=== PATIENT | female | born 1970 | race Caucasian/White ===

== ENCOUNTER → 2016-07-20 | Outpatient (CLI) | payer BC ==
--- NOTE | 2016-07-20 19:25 | Diagnostic Imaging Report ---
Bilateral screening mammogram The current study was also evaluated with a Computer Aided Detection (CAD) system. Indication: Screening. No current complaints stated on the questionnaire. COMPARISON: 07/22/15. FINDINGS: The breasts are composed of heterogeneously dense parenchyma which may decrease mammographic sensitivity. There is no mass, architectural distortion or suspicious cluster of calcifications seen. Allowing for technique and positional differences, no suspicious change is seen. IMPRESSION: Dense breasts with no definite change. ACR BI-RADS Category 2: Benign findings. Result letter will be mailed to the patient. Note: At least 10% of breast cancer is not imaged by mammography. Dictated by: Dictated on workstation # [id number]
== END ==
LOC: RAD 14:46
PROVIDERS: ATTEND Obstetrics & Gynecology
DX: Z12.31 Encounter for screening mammogram for malignant neoplasm of breast (principal)

== ENCOUNTER → 2017-08-10 | Outpatient (CLI) | payer BC ==
--- NOTE | 2017-08-10 19:22 | Diagnostic Imaging Report ---
INDICATION: Routine screening. The current study was also evaluated with a Computer Aided Detection (CAD) system. Comparison is made with prior exam from 07/20/2016 and 07/22/2015. Both breasts demonstrate marked parenchymal heterogeneity and increased density, limiting the sensitivity of mammography. There is a nodular density just lateral to the nipple line in the mid right breast which appears stable when compared with prior mammograms. On the MLO view, there is a small nodular density posteriorly at the nipple line, posterior to the fibroglandular tissue, indeterminate. Additional views are recommended. The left breast is unremarkable. The axillae are unremarkable. IMPRESSION: Right breast density on the MLO view. Spot compression and ML views are recommended for further evaluation. ACR BI-RADS Category 0: Incomplete. (Needs additional imaging evaluation). Result letter will be mailed to the patient. Note: At least 10% of breast cancer is not imaged by mammography. Dictated by: Dictated on workstation # [id number]
== END ==
LOC: RAD 09:40
PROVIDERS: ATTEND Obstetrics & Gynecology
DX: Z12.31 Encounter for screening mammogram for malignant neoplasm of breast (principal)
CPT/HCPCS: 77067

== ENCOUNTER → 2017-08-20 | Outpatient (CLI) | payer BC ==
--- NOTE | 2017-08-20 20:32 | Diagnostic Imaging Report ---
EXAMINATION: Ultrasound of the right breast. INDICATION: Abnormal mammogram. FINDINGS: The screening mammogram performed on 08/10/2017 noted a small 3-4 mm nodular density roughly 8-9 cm from the nipple and posterior to the fibroglandular tissue. This density was only seen on the MLO view and could not be identified on the craniocaudal view. The diagnostic mammogram performed earlier today revealed that the nodular density seemed to persist on the repeat MLO views although it could not be identified on the compression or true lateral view. The ultrasound examination of this portion of the breast fails to show any discrete solid or cystic mass. While the precise etiology of the mammographic finding is not certain, it has a generally benign appearance. I would recommend that a short-term (six-month) follow-up mammogram of the right breast be obtained for continued evaluation. IMPRESSION: There is no discrete solid or cystic mass to correspond to the density seen on the mammogram. Most likely, the mammographic finding is a benign process or secondary to fibroglandular tissue.. Recommendations as above. ACR BI-RADS Category 3: Probably benign findings. Dictated on workstation # [id number]
--- NOTE | 2017-08-21 12:19 | Diagnostic Imaging Report ---
EXAMINATION: Unilateral diagnostic right mammogram INDICATION: Annual screening mammogram The current study was also evaluated with a Computer Aided Detection (CAD) system. The screening mammogram performed on 08/10/2017 noted a small 4-5 MM nodular density deep in the midportion of the right breast on the MLO view. This density was not identified with certainty on the craniocaudad view. This finding is not as conspicuous on the compression view or on the MLO view although it still seems to persist on the repeat MLO view. I do suspect that this is a benign process or secondary to fibroglandular tissue. Even so, I would recommend that ultrasound be performed for further study. IMPRESSION: Ultrasound would be recommended for further evaluation of the right breast. ACR BI-RADS Category 0: Incomplete. (Needs additional imaging evaluation). Result letter will be mailed to the patient. Note: At least 10% of breast cancer is not imaged by mammography. Dictated on workstation # [id number]
== END ==
LOC: RAD 13:59
PROVIDERS: ATTEND Obstetrics & Gynecology
DX: R92.2 Inconclusive mammogram (principal)
CPT/HCPCS: 76641

== ENCOUNTER → 2018-03-29 | Outpatient (CLI) | payer BC ==
--- NOTE | 2018-03-29 13:49 | Diagnostic Imaging Report ---
INDICATION: Right breast density. Patient presents for six-month followup. Correlation is made with prior mammograms from 08/10/2017 and 08/20/2017. 2-D and 3-D unilateral right diagnostic mammography was performed. Right breast remains heterogenously dense, the tiny nodular density in the far posterior right breast seen on MLO view posterior to the fibroglandular tissue is again seen and unchanged. This again has a fairly benign appearance. No new mass is seen. No suspicious calcifications are identified. The right axilla is unremarkable. IMPRESSION: BI-RADS 3 Stable right mammogram with stable nodular density in the far posterior right breast. Continued follow with repeat mammogram in 6 months is recommended to assure stability. ACR BI-RADS Category 3: Probably benign findings. Result letter will be mailed to the patient. Note: At least 10% of breast cancer is not imaged by mammography. Dictated by: Dictated on workstation # [id number]
== END ==
LOC: RAD 13:13
PROVIDERS: ATTEND Obstetrics & Gynecology
DX: Z09 Encounter for follow-up examination after completed treatment for conditions other than malignant neoplasm (principal); R92.2 Inconclusive mammogram

== ENCOUNTER → 2018-08-09 | Outpatient (CLI) | payer BC ==
--- NOTE | 2018-08-09 17:18 | Diagnostic Imaging Report ---
INDICATION: Six-month followup of right breast density. COMPARISON: Correlation is made with diagnostic mammogram of earlier the same day as well as prior right breast ultrasound from 08/20/2017. EXAMINATION: Sonographic interrogation of the right breast was performed. FINDINGS: No sonographic abnormality is seen. No solid or cystic mass is detected. Circumscribed ovoid density noted mammographically cannot be visualized sonographically. IMPRESSION: No sonographic abnormality is seen. Benign ovoid density seen mammographically is not visible sonographically. This does have benign features and continued right mammographic followup in six months is recommended to assure continued stability. ACR BI-RADS Category 3: Probably benign findings. Result letter will be mailed to the patient. Note: At least 10% of breast cancer is not imaged by mammography. Dictated on workstation # [id number]
--- NOTE | 2018-08-09 18:47 | Diagnostic Imaging Report ---
INDICATION: Six-month followup of right breast density. COMPARISON: Correlation is made with prior mammograms dating back to 08/10/2017 and 07/20/2016. EXAMINATION: Bilateral 2D and 3D diagnostic mammography was performed with CAD. The current study was also evaluated with a Computer Aided Detection (CAD) system. FINDINGS: Both breasts remain heterogeneously dense, limiting sensitivity of mammography. There is a slightly ovoid density in the upper right breast, approximately 8 cm from the nipple, measuring approximately 7 mm x 3 mm. This density is not well seen on the CC view. This appears to be fairly stable when compared to exam dating back to one year earlier. This also appears to have been present on the study from 03/29/2018. This has fairly benign features. No microcalcifications are seen. The left breast is unremarkable. IMPRESSION: Stable circumscribed ovoid density in the upper posterior right breast only seen on the MLO and ML views. Further evaluation with ultrasound today will be performed. ACR BI-RADS Category 0: Incomplete. (Needs additional imaging evaluation). Result letter will be mailed to the patient. Note: At least 10% of breast cancer is not imaged by mammography. Dictated on workstation # [id number]
== END ==
LOC: RAD 14:06
PROVIDERS: ATTEND Obstetrics & Gynecology
DX: R92.2 Inconclusive mammogram (principal)
CPT/HCPCS: 77066

== ENCOUNTER → 2019-02-06 | Outpatient (CLI) | payer BC ==
--- NOTE | 2019-02-06 21:13 | Diagnostic Imaging Report ---
INDICATION: Six-month followup. COMPARISON: Prior examination from 08/09/2008, 03/29/2018 and 08/20/2017. EXAMINATION: CAD and 3D tomosynthesis was performed. FINDINGS: The previously described nodular density in the axillary region of the right breast is less apparent on today's exam. There is no new dominant mass, spiculated lesion or suspicious calcification identified. The skin, nipple and axilla are unremarkable. The fibroglandular tissue is heterogeneously dense. IMPRESSION: The patient should resume bilateral screening mammography in July of 2019. ACR BI-RADS Category 2: Benign findings. Result letter will be mailed to the patient. Note: At least 10% of breast cancer is not imaged by mammography. Dictated by: Dictated on workstation # [id number]
== END ==
LOC: RAD 13:39
PROVIDERS: ATTEND Obstetrics & Gynecology
DX: R92.8 Other abnormal and inconclusive findings on diagnostic imaging of breast (principal)

== ENCOUNTER → 2019-07-18 | Outpatient (CLI) | payer BC ==
--- NOTE | 2019-07-18 10:19 | Diagnostic Imaging Report ---
INDICATION: Routine screening. Comparison is made with prior mammogram 08/09/2018, 02/06/2019 and 08/10/2017. 2-D and 3-D bilateral screening mammography was performed with CAD. Both breast are heterogeneously dense, limiting the sensitivity of mammography. The parenchymal pattern is stable. No dominant mass or malignant-appearing microcalcifications are seen. Axillae are unremarkable. IMPRESSION: BI-RADS Category 1 No mammographic features suspicious for malignancy are identified. ACR BI-RADS Category 1: Negative. Result letter will be mailed to the patient. Note: At least 10% of breast cancer is not imaged by mammography. Dictated by: Dictated on workstation # [id number]
== END ==
LOC: RAD 09:04
PROVIDERS: ATTEND Obstetrics & Gynecology
DX: Z12.31 Encounter for screening mammogram for malignant neoplasm of breast (principal)
CPT/HCPCS: 77067

== ENCOUNTER → 2020-07-23 | Outpatient (CLI) | payer BC ==
--- NOTE | 2020-07-26 16:23 | Diagnostic Imaging Report ---
EXAMINATION: Digital mammogram bilateral screening with CAD. INDICATION: Screening. COMPARISON: This study was compared to the prior exams of 07/18/2019, 02/06/2019, 08/09/2018, 03/29/2018, and 08/10/2017. PERSONAL HISTORY: At this time, there are no current complaints. FINDINGS: The fibroglandular tissue in both breasts is heterogeneously dense. This does limit the sensitivity of this exam. Overall, there does not appear to have been any significant change when compared to the prior study. No primary or secondary sign of malignancy is noted. IMPRESSION: There is no radiographic evidence for malignancy. ACR BI-RADS Category 1: Negative. Result letter will be mailed to the patient. Note: At least 10% of breast cancer is not imaged by mammography. Dictated by: Dictated on workstation # [id number]
== END ==
LOC: RAD 11:00
PROVIDERS: ATTEND Obstetrics & Gynecology
DX: Z12.31 Encounter for screening mammogram for malignant neoplasm of breast (principal)
CPT/HCPCS: 77063; 77067

== ENCOUNTER → 2021-11-02 | Outpatient (CLI) | payer BC | LOC: LABNPT 09:30 | PROVIDERS: ATTEND Obstetrics & Gynecology | DX: Z53.9 Procedure and treatment not carried out, unspecified reason (principal) ==

== ENCOUNTER → 2021-11-02 | Outpatient (CLI) | payer BC ==
--- NOTE | 2021-11-02 14:42 | Diagnostic Imaging Report ---
INDICATION: Routine screening. COMPARISON: 07/23/2020 and 07/18/2019. TECHNIQUE: 2D and 3D bilateral screening mammography was performed with CAD. FINDINGS: Both breasts are heterogeneously dense, limiting the sensitivity of mammography. No dominant mass or malignant-appearing microcalcifications are seen. The axillae are unremarkable. IMPRESSION: No mammographic features suspicious for malignancy are identified. ACR BI-RADS Category 1: Negative. Result letter will be mailed to the patient. Note: At least 10% of breast cancer is not imaged by mammography. Dictated by: Dictated on workstation # [id number]
== END ==
LOC: RAD 09:45
PROVIDERS: ATTEND Obstetrics & Gynecology
DX: Z12.31 Encounter for screening mammogram for malignant neoplasm of breast (principal)
CPT/HCPCS: 77063; 77067

== ENCOUNTER → 2023-01-10 | Outpatient (CLI) | payer BC ==
--- NOTE | 2023-01-10 16:05 | Diagnostic Imaging Report ---
INDICATION: Routine screening. COMPARISON: 11/02/2021 and 07/23/2020. TECHNIQUE: 2D and 3D bilateral screening mammography was performed with CAD. FINDINGS: Both breasts are heterogeneously dense, limiting the sensitivity of mammography. The parenchymal pattern is stable. No mass or malignant-appearing microcalcifications are identified. The axillae are unremarkable. IMPRESSION: No mammographic features suspicious for malignancy are identified. ACR BI-RADS Category 1: Negative. Result letter will be mailed to the patient. Note: At least 10% of breast cancer is not imaged by mammography. Dictated by: Dictated on workstation # [id number]
== END ==
LOC: RAD 14:40
PROVIDERS: ATTEND Obstetrics & Gynecology
DX: Z12.31 Encounter for screening mammogram for malignant neoplasm of breast (principal)
CPT/HCPCS: 77063; 77067